=== PATIENT | female | born 2000 | race Two or more races ===

== ENCOUNTER 2023-02-12 11:26 | Emergency (ER) | payer MEDICAID, OTHER ==
[~2023-02-12] VITALS: Ht 170.2 cm; Wt 134.8 kg
[2023-02-12 13:51] VITALS: BP 151/102; PULSE 106; RESP 24; O2SAT 96
[2023-02-12] MEDS ORDERED: CYCL-839 PO (18:21)
[2023-02-12] MEDS ORDERED: HYDR-4902 PO (18:21)
[2023-02-12] MEDS ORDERED: DexAMETHasone SOD PHOS 10MG/1ML VIAL INJ IM ONE (18:30)
[2023-02-12] MEDS ORDERED: HYDROcodone-ACET 5/325MG TAB PO ONE (18:30)
== END 2023-02-12 19:35 | disposition home or self-care (01) ==
LOC: ER 11:26
DX: S33.5XXA Sprain of ligaments of lumbar spine, initial encounter (principal); S20.211A Contusion of right front wall of thorax, initial encounter; W01.0XXA Fall on same level from slipping, tripping and stumbling without subsequent striking against object, initial encounter; Y93.89 Activity, other specified; Y92.89 Other specified places as the place of occurrence of the external cause; Y99.8 Other external cause status
CPT/HCPCS: 71111; 72100; 81025; 96372; 99284; J1100